=== PATIENT | male | born 1995 | race African-American/Black ===

== ENCOUNTER 2022-07-17 15:49 | Emergency (ER) | payer OTHER ==
[~2022-07-17] VITALS: Ht 165.1 cm; Wt 79.4 kg
[2022-07-17 16:00] VITALS: BP 142/77; TEMP 98
== END 2022-07-17 16:30 | disposition home or self-care (01) ==
LOC: ED 15:49
DX: Z48.02 Encounter for removal of sutures (principal); S06.0X0D Concussion without loss of consciousness, subsequent encounter; Y00.XXXD Assault by blunt object, subsequent encounter; Y92.29 Other specified public building as the place of occurrence of the external cause

== ENCOUNTER 2022-07-19 16:30 | Emergency (ER) | payer OTHER ==
[~2022-07-19] VITALS: Ht 165.1 cm; Wt 79.4 kg
[2022-07-19 16:41] VITALS: BP 139/67; TEMP 97.4
== END 2022-07-19 16:52 | disposition home or self-care (01) ==
LOC: ED 16:30
DX: Z48.02 Encounter for removal of sutures (principal)
CPT/HCPCS: 99283